=== PATIENT | male | born 1995 | race Two or more races ===

== ENCOUNTER 2023-09-14 15:02 | Emergency (ER) | payer MEDICAID ==
[~2023-09-14] VITALS: Ht 165.1 cm; Wt 59.0 kg
[2023-09-14 15:32] VITALS: BP 135/64; TEMP 98.1
[2023-09-14 15:43] VITALS: O2SAT 98
== END 2023-09-14 15:45 | disposition home or self-care (01) ==
LOC: ER 15:06
DX: S01.01XD Laceration without foreign body of scalp, subsequent encounter (principal); X58.XXXD Exposure to other specified factors, subsequent encounter